=== PATIENT | male | born 1995 | race Caucasian/White ===

== ENCOUNTER 2020-04-13 15:02 | Outpatient (REF) | payer OTHER, SELFPAY | END 2020-04-13 15:03 | disposition home or self-care (01) | LOC: HO.LAB 15:02 | PROVIDERS: Visit Provider Internal Medicine | DX: Z20.822 Contact with and (suspected) exposure to COVID-19 (principal) | CPT/HCPCS: 36415; C9803; U0003 ==

== ENCOUNTER 2020-08-03 11:25 | Outpatient (REF) | payer OTHER, SELFPAY ==
[2020-08-03 11:47] LABS: COVID-19 Test Positive (Negative)
== END 2020-08-03 11:26 | disposition home or self-care (01) ==
LOC: HO.LAB 11:25
PROVIDERS: Visit Provider Internal Medicine
DX: Z20.822 Contact with and (suspected) exposure to COVID-19 (principal)
CPT/HCPCS: 36415; 87635; C9803

== ENCOUNTER 2020-08-13 11:04 | Outpatient (REF) | payer OTHER, SELFPAY ==
[2020-08-13 11:24] LABS: COVID-19 Test Negative (Negative)
== END 2020-08-13 11:05 | disposition home or self-care (01) ==
LOC: HO.LAB 11:04
PROVIDERS: Visit Provider Internal Medicine
DX: Z20.822 Contact with and (suspected) exposure to COVID-19 (principal)
CPT/HCPCS: 36415; 87635; C9803

== ENCOUNTER 2021-01-22 09:53 | Outpatient (REF) | payer OTHER, SELFPAY | END 2021-01-22 09:54 | disposition home or self-care (01) | LOC: HO.LAB 09:53 | PROVIDERS: Visit Provider Internal Medicine | DX: Z20.822 Contact with and (suspected) exposure to COVID-19 (principal) | CPT/HCPCS: C9803; U0003; U0005 ==

== ENCOUNTER → 2023-01-14 15:47 | Outpatient (BNVA) | payer OTHER, SELFPAY | DX: S60.222A Contusion of left hand, initial encounter (principal); X58.XXXA Exposure to other specified factors, initial encounter | CPT/HCPCS: 99203 ==